=== PATIENT | female | born 1995 | race Hispanic/Latino ===

== ENCOUNTER 2020-12-02 16:31 | Emergency (ER) | payer OTHER ==
[~2020-12-02] VITALS: Ht 157.5 cm; Wt 117.9 kg
[2020-12-02 16:31] VITALS: BP 118/94
--- NOTE | 2020-12-02 16:31 | NUR ---
ARRIVAL PT STATES WATER BROKE LAST NIGHT IN SHOWER AND HAS BEEN HAVING CONTRACTIONS STARTING TODAY. EVERY 12-14 MINUTES LASTING FOR APPROX 30 SECONDS. STATES HER OB IS IN [place]. STATES HER AND BOYFRIEND WERE IN TOWN TODAY AND THAT THIS ED WAS CLOSER.
--- NOTE | 2020-12-02 16:45 | NUR ---
STATUS PELVIC EXAM PERFORMED BY DR HANSON. FHT PRESENT AT 145 BPM.
--- NOTE | 2020-12-02 17:02 | NUR ---
TRANSFER PT WILL BE ACCEPTED BY [facility]. SPOKE TO JOHN MARIANO AND SHE STATES THEY WILL SEND A HEAD OF MARKETING ADOMETRY NURSE TO OUR FACILITY [facility].
--- NOTE | 2020-12-02 17:03 | ER.PDOC ---
General Chief Complaint: Requesting Medical Care Stated Complaint: CONTRACTIONS TRAVEL OUT OF US: No Time seen by MD: 16:32 Source: patient Exam Limitations: no limitations History of Present Illness Initial Comments This 28-year-old female comes in complaining that she thinks she had ruptured her membranes last night while in the shower. Throughout the day she had a little bit of leakage. She states that she has been having some contractions throughout the day that are somewhere between 15 and 20 minutes apart. She states that there is no question she is in labor. She indicates that she has had 1 previous babies she is this is #4 she had 1 previous baby 1 and now then with this when she is 40 8 weeks with this 1. Past medical history was negative surgeries negative Timing/Duration: 24 hours Severity: moderate Allergies: Coded Allergies: No Known Allergies (Unverified , 12/02/20) Social History Smoking: non-smoker Alcohol Use: none Drug Use: none Review of Systems Genitourinary: other (active labor, SROM) All Other Systems: Reviewed and Negative Physical Exam General Appearance: No Apparent Distress, WD/WN EENT: eyes nml inspection Neck: Non-Tender, Full Range of Motion Respiratory: chest non-tender, lungs clear, normal breath sounds, no respiratory distress CVS: reg rate & rhythm, no murmur, no gallop, pulses nml Gastrointestinal: Normal Bowel Sounds, Other (Gravid uterus. 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 Speculum exam does show fluid that looks like meconium stained amniotic fluid. Swab of that was taken and sent to lab. Bimanual exam shows head is engaged cervix is 100% effaced and she is 4 cm dilated amniotic tissue was still overlooked overlying the head. Results/Orders Results/Orders Orders - FELTON HANSON MD [facility] (12/02/20 16:39) Covid19 Antigen Luly Georgina (12/02/20 17:00) Cbc With Auto Diff (12/02/20 17:34) Abo/Rh Type (12/02/20 17:34) Basic Metabolic Panel (12/02/20 17:34) 0.9 % Sodium Chloride (Ns 1000ml) (12/02/20 17:34) Vital Signs Date Time Temp Pulse Resp B/P (MAP) Pulse Ox O2 Delivery O2 Flow Rate FiO2 12/02/20 18:01 88 116/90 (99) 12/02/20 16:31 98.8 101 16 118/94 (102) 96 Room Air 12/02/20 16:31 98.8 101 16 96 12/02/20 16:31 98.8 101 16 Administered Medications Medications (Trade) Dose Ordered Sig/Gokul Route PRN Reason Start Time Stop Time Status Last Admin Dose Admin Sodium Chloride 1,000 ml @ 125 mls/hr Q8H STAT IV 12/02/20 17:34 12/03/20 01:33 UNV 12/02/20 17:57 125 MLS/HR Laboratory Tests Test 12/02/20 16:50 12/02/20 16:58 12/02/20 17:00 White Blood Count 13.1 10^3/uL (4.5-11.0) H Red Blood Count 4.74 10^6/uL (4.00-5.20) Hemoglobin 10.1 g/dL (12.0-15.0) L Hematocrit 32.0 % (36.0-46.0) L Mean Corpuscular Volume 67.5 fL (78-100) L Mean Corpuscular Hemoglobin 21.3 pg (26-34) L Mean Corpuscular Hemoglobin Concent 31.6 g/dL (33-36.5) L Red Cell Distribution Width 16.8 % (11.5-14.5) H Platelet Count 264 10^3/uL (150-400) Mean Platelet Volume 11.5 fL (7.8-11.0) H Neutrophils (%) (Auto) 78.3 % (41.0-85.0) Lymphocytes (%) (Auto) 14.7 % (24.0-44.0) L Monocytes (%) (Auto) 5.7 % (5.0-12.0) Neutrophils # (Auto) 10.2 10^3/uL (1.8-7.7) H Lymphocytes # (Auto) 1.92 10^3/uL1 (1.0-4.8) Monocytes # (Auto) 0.8 10^3/uL (0.3-0.8) Absolute Immature Granulocyte (auto 0.04 10^3 u/L (0-2) Absolute Eosinophils (auto) 0.1 10^3/uL (0.0-0.2) Immature Granulocytes % 0.30 % (0.00-0.50) Eosinophils % 0.5 % (0.0-5.0) Basophils % 0.5 % (0.0-0.2) H Basophils # 0.1 10^3/uL (0.0-0.1) Sodium Level 137 mmol/L (132-145) Potassium Level 3.9 mmol/L (3.6-5.2) Chloride Level 102.0 mmol/L (96-109) Carbon Dioxide Level 24.3 mmol/L (20.0-32) Glucose Level 93 mg/dL (70-110) Blood Urea Nitrogen 10 mg/dL (7-18) Creatinine 0.88 mg/dL (0.59-1.40) Calcium Level 8.9 mg/dL (8.4-10.5) Anion Gap 14.6 Estimated GFR () 96.4 (>/=60) Est GFR (CKD-EPI)(Non-Afr Yemeni) 79.6 (>/=60) BUN/Creatinine Ratio 11.0 Amniotic Fld Alpha Fetoprotein RUPTURE SARS-CoV-2 Antigen (Rapid) NEGATIVE (NEGATIVE) Blood Bank Test 12/02/20 16:50 Blood Type A POSITIVE Progress Progress Patient identified [facility] AGENT as her CUSTOMER AGENT care. I contacted them and they are sending a delivery team here from [place]. ER DEPART Departure Time of Disposition: 18:30 Disposition: 70 DISC/XFER TO [facility] Impression: Primary Impression: Active labor Additional Impression: Spontaneous rupture of amniotic membranes Condition: Stable Referrals: PCP,UNKNOWN (PCP) PRIMARY CARE PROVIDER Duration or Time Spent with Pa: 30m Problem Qualifiers FELTON HANSON MD Dec 02, 2020 17:03
[2020-12-02] MEDS ORDERED: NS 1000ML 1,000 ML IV STA (17:34)
--- NOTE | 2020-12-02 17:37 | NUR ---
STATUS PT IS WANTING TO LEAVE ER AND DRIVE TO [place]. EDP HAS EXPLAINED THE RISKS OF HER LEAVING AMA AT THIS TIME. SHEWANTS TO WAIT FOR BOYFRIEND TO GET HERE BEFORE DECIDING HER CHOICE.
--- NOTE | 2020-12-02 17:41 | NUR ---
IV PT REFUSING IV, BLOODWORK UNTIL BOYFRIEND ARRIVES AND THEY DISCUSS LEAVING AMA.
[2020-12-02] MEDS ORDERED: NS 1000ML 1,000 ML ONE (17:56)
[2020-12-02 18:01] VITALS: BP 116/90
[2020-12-02 18:03] LABS: BASOPHIL # 0.1 10^3/uL (0.0-0.1); BASOPHIL % 0.5 % (0.0-0.2); EOSINOPHIL # 0.1 10^3/uL (0.0-0.2); EOSINOPHIL % 0.5 % (0.0-5.0); LYMPHOCYTES # 1.92 10^3/uL1 (1.0-4.8); LYMPHOCYTES % 14.7 % (24.0-44.0); MEAN CORP HGB 21.3 pg (26-34); MONOCYTES # 0.8 10^3/uL (0.3-0.8); MONOCYTES % 5.7 % (5.0-12.0); NEUTROPHIL # 10.2 10^3/uL (1.8-7.7); NEUTROPHILS % 78.3 % (41.0-85.0); PLATELET COUNT 264 10^3/uL (150-400); RED CELL DISTRIBUTION WIDTH 16.8 % (11.5-14.5)
--- NOTE | 2020-12-02 18:08 | NUR ---
[facility] REPORT CALLED AND GIVEN TO RUBINA MAGAÑA AT [facility]. THE FLIGHT CREW SHOULD BE ARRIVING IN THE NEXT 10 MINUTES.
[2020-12-02 18:17] LABS: CARBON DIOXIDE 24.3 mmol/L (20.0-32)
[2020-12-02 18:18] LABS: CALCIUM 8.9 mg/dL (8.4-10.5)
--- NOTE | 2020-12-02 18:32 | NUR ---
status PT TAKEN BY [facility] IN STABLE CONDITION.
== END 2020-12-02 18:31 | disposition short-term general hospital (02) ==
LOC: ER 16:31 → EDBD 17:05 → ER 18:31
DX: O42.10 Premature rupture of membranes, onset of labor more than 24 hours following rupture, unspecified weeks of gestation (principal); Z20.822 Contact with and (suspected) exposure to COVID-19; Z3A.08 8 weeks gestation of pregnancy
CPT/HCPCS: 36415; 80048; 84112; 85025; 86900; 87426; 96360; 99285; J7030